=== PATIENT | female | born 1965 | race Hispanic/Latino ===

== ENCOUNTER 2021-03-07 09:35 | Outpatient (CLI) | payer OTHER | END 2021-03-07 09:36 | disposition home or self-care (01) | LOC: CSHCT 09:35 | PROVIDERS: ATTEND Family Medicine | DX: S09.90XA Unspecified injury of head, initial encounter (principal) | CPT/HCPCS: 70450 ==

== ENCOUNTER 2021-12-05 14:26 | Outpatient (CLI) | payer OTHER ==
[2021-12-06 13:49] LABS: SARS-CoV-2 PCR by NAA Not Detected (NotDetected)
== END 2021-12-05 14:27 | disposition home or self-care (01) ==
LOC: CSHLAB 14:26
PROVIDERS: ATTEND Internal Medicine Pulmonary Disease
DX: Z20.822 Contact with and (suspected) exposure to COVID-19 (principal)
CPT/HCPCS: U0003; U0005

== ENCOUNTER 2021-12-09 08:55 | Outpatient (CLI) | payer OTHER | END 2021-12-09 08:56 | disposition home or self-care (01) | LOC: CSHCT 08:55 | PROVIDERS: ATTEND Internal Medicine Pulmonary Disease | DX: J84.9 Interstitial pulmonary disease, unspecified (principal) | CPT/HCPCS: 71250 ==

== ENCOUNTER 2022-08-28 13:36 | Outpatient (CLI) | payer OTHER | END 2022-08-28 13:37 | disposition home or self-care (01) | LOC: CSHCP 13:36 | PROVIDERS: ATTEND Internal Medicine Pulmonary Disease | DX: J84.9 Interstitial pulmonary disease, unspecified (principal) | CPT/HCPCS: 94618 ==

== ENCOUNTER 2023-06-16 10:25 | Outpatient (CLI) | payer BC | END 2023-06-16 10:26 | disposition home or self-care (01) | LOC: CSHMAMMO 10:25 | PROVIDERS: ATTEND Family Medicine | DX: Z13.820 Encounter for screening for osteoporosis (principal); Z78.0 Asymptomatic menopausal state | CPT/HCPCS: 77080 ==

== ENCOUNTER 2023-09-25 14:08 | Observation (INO) | payer BC, SELFPAY ==
[~2023-09-25 14:08] MED LIST: Iopamidol 370 76% 100 ML VIAL ONE
[2023-09-25 14:58] LABS: #Basophils 0.1 10x3/uL (0.0-0.2); #Eosinphils 0.3 10x3/uL (0.0-0.5); #Neutrophils 8.6 10x3/uL (1.5-8.4); %Basophils 0.7 % (0.0-2.0); %Lymphocytes 25.7 % (18.0-47.0); %Monocytes 7.6 % (0.0-10.0); %Neutrophils 63.3 % (40.0-75.0); Hematocrit 42.5 % (34.9-44.5); Hemoglobin 14.1 g/dL (12.0-15.5); Mean Corpuscular HGB CONC 33.2 g/dL (32.0-36.0); Mean Corpuscular Hemoglobin 29.4 pg (27.0-33.0); Mean Corpuscular Volume 88.7 fl (81.6-98.3); Platelet Count 445 10x3/uL (150-450); RBC Distribution Width 12.7 % (11.5-14.5); Red Blood Cell (RBC) Count 4.79 10x6/uL (3.90-5.03); White Blood Cell (WBC) Count 13.6 10x3/uL (3.5-10.5)
[2023-09-25 15:10] LABS: ALT (SGPT) 53 U/L (8-55); AST (SGOT) 50 U/L (5-34); Albumin 4.4 g/dL (3.5-5.0); Alkaline Phosphatase 167 U/L (40-110); Anion Gap 17 mmol/L (10-20); BUN (Urea Nitrogen) 10 mg/dL (9.8-20.1); Bilirubin, Total 0.3 mg/dL (0.2-1.2); Calc. Creatinine Clearance 0 mL/min (70-130); Calcium 9.7 mg/dL (7.8-10.44); Carbon Dioxide 23 mmol/L (22-29); Chloride 101 mmol/L (98-107); Estimated GFR 93; Globulin 3.7 g/dL (2.4-3.5); Glucose 100 mg/dL (70-105); Lipase 66 U/L (8-78); Potassium 4.5 mmol/L (3.5-5.1); Protein, Total 8.1 g/dL (6.0-8.3); Sodium 136 mmol/L (136-145)
[2023-09-25 15:12] LABS: Troponin I Less than 0.010 ng/mL (< 0.028)
[2023-09-25] MEDS ORDERED: Lidocaine 2% Viscous Solution 10 ML, Aluminum & Magnesium Hydroxide 30 ML SSW SCH (16:15)
[2023-09-25] MEDS ORDERED: diphenhydrAMINE 25 MG CAP ONE (16:23)
[2023-09-25] MEDS ORDERED: Metoclopramide 10 MG/10 ML UDCUP ONE (16:23)
[2023-09-25 16:41] LABS: Troponin I Less than 0.010 ng/mL (< 0.028)
[2023-09-25] MEDS ORDERED: Ondansetron PF 4 MG/2 ML Vial IVP PRN (19:22)
[2023-09-25] MEDS ORDERED: Dextrose 5% in Water 1,000 ML IV PRN (19:22)
[2023-09-25] MEDS ORDERED: Glucagon 1 MG/ML KIT IM PRN (19:22)
[2023-09-25] MEDS ORDERED: Calcium Carbonate 500 MG ChewTAB PO PRN (19:22)
[2023-09-25] MEDS ORDERED: HumaLOG 300 UNITS/3 ML VIAL SC PRN (19:22)
[2023-09-25] MEDS ORDERED: Guaifenesin DM 100-10/5 ML UDCUP PO PRN (19:22)
[2023-09-25] MEDS ORDERED: Dextrose 50% Abboject 50 ML SYRINGE SLOW IVP PRN (19:22)
[2023-09-25] MEDS ORDERED: Acetaminophen 325 MG TAB PO PRN (19:22)
[2023-09-25] MEDS ORDERED: HYDROcodone/Acetaminophen 5/325 mg Tablet PO PRN (19:22)
[2023-09-25] MEDS ORDERED: Senokot S 8.6-50 MG TAB PO PRN (19:22)
[2023-09-25] MEDS ORDERED: Ipratropium/Albuterol 3 ML NEB NEB PRN (19:26)
[2023-09-25] MEDS ORDERED: Atorvastatin Calcium 20 MG TAB PO SCH (21:00)
[2023-09-25 21:13] VITALS: BMI 25.4
[2023-09-25] MEDS ORDERED: Famotidine/PF 20 mg/2ml Vial SLOW IVP SCH (21:30)
[2023-09-25 23:45] LABS: Troponin I Less than 0.010 ng/mL (< 0.028)
[2023-09-26] MEDS: Mometasone/Formoterol 200/5 60 PUFF INH SCH ×2 (05:38→09:50)
[2023-09-26 05:57] LABS: Bilirubin Neg (Negative); Blood, Urine Negative (Negative); Clarity Clear (Clear); Glucose, Urine (Dipstick) Normal (Negative); Ketone, Urine Negative (Negative); Leukocyte Negative (Negative); Nitrite Negative (Negative); Protein, Urine (Dipstick) 30 mg/dl (Neg-Trace); Specific Gravity, Urine 1.015 (1.005-1.030); Urobilinogen Normal mg/dL (Less than 2)
[2023-09-26 06:05] LABS: Amphetamine Not Detected (NotDetected); Barbiturates Screen Not Detected (NotDetected); Benzodiazepine Screen Not Detected (NotDetected); Cocaine Metabolite Screen Detected (NotDetected); Methadone Not Detected (NotDetected); Methamphetamine Not Detected (NotDetected); Opiate Screen Not Detected (NotDetected); Oxycodone Screen Not Detected (NotDetected); Phencyclidine (PCP) Not Detected (NotDetected); THC/Cannabinoid Screen Not Detected (NotDetected); Tricyclic Screen Not Detected (NotDetected)
[2023-09-26 06:26] LABS: Bacteria/HPF Rare-Few HPF (None Seen); RBC/HPF None Seen HPF (0-3); WBC/HPF 0-3 HPF (0-3)
[2023-09-26 07:41] LABS: #Basophils 0.1 10x3/uL (0.0-0.2); #Eosinphils 0.4 10x3/uL (0.0-0.5); #Monocytes 0.9 10x3/uL (0.0-1.1); #Neutrophils 3.1 10x3/uL (1.5-8.4); %Basophils 1.3 % (0.0-2.0); %Eosinophils 5.5 % (0.0-6.0); %Lymphocytes 39.9 % (18.0-47.0); %Monocytes 11.4 % (0.0-10.0); %Neutrophils 41.4 % (40.0-75.0); Hematocrit 39.3 % (34.9-44.5); Hemoglobin 13.2 g/dL (12.0-15.5); Mean Corpuscular HGB CONC 33.6 g/dL (32.0-36.0); Mean Corpuscular Hemoglobin 29.8 pg (27.0-33.0); Mean Corpuscular Volume 88.7 fl (81.6-98.3); Platelet Count 378 10x3/uL (150-450); RBC Distribution Width 12.8 % (11.5-14.5); Red Blood Cell (RBC) Count 4.43 10x6/uL (3.90-5.03); White Blood Cell (WBC) Count 7.5 10x3/uL (3.5-10.5)
[2023-09-26 07:59] LABS: Anion Gap 14 mmol/L (10-20); BUN (Urea Nitrogen) 13 mg/dL (9.8-20.1); Calc. Creatinine Clearance 75 mL/min (70-130); Calcium 9.2 mg/dL (7.8-10.44); Carbon Dioxide 25 mmol/L (22-29); Chloride 103 mmol/L (98-107); Estimated GFR 93; Glucose 108 mg/dL (70-105); Potassium 4.7 mmol/L (3.5-5.1); Sodium 137 mmol/L (136-145)
[2023-09-26] MEDS ORDERED: Aspirin 81 mg Enteric Coated Tablet PO SCH (09:00)
[2023-09-26] MEDS ORDERED: Polyethylene Glycol 3350 17 GM Packet PO SCH (09:00)
[2023-09-26] MEDS ORDERED: Lisinopril 2.5 MG TAB PO SCH (09:00)
[2023-09-26 12:24] VITALS: BP 124/60; TEMP 98.1
[2023-09-26] MEDS ORDERED: METFORMIN HCL 500 MG PO SCH (17:00)
== END 2023-09-26 13:13 | disposition home or self-care (01) ==
LOC: CSHERS 14:08 → CSHTELE 20:44 → INTOOBSV 20:44
PROVIDERS: ADMIT Emergency Medicine; ATTEND Internal Medicine
DX: R07.9 Chest pain, unspecified (principal); D72.829 Elevated white blood cell count, unspecified; J84.9 Interstitial pulmonary disease, unspecified; I10 Essential (primary) hypertension; E11.9 Type 2 diabetes mellitus without complications; E78.5 Hyperlipidemia, unspecified; F17.210 Nicotine dependence, cigarettes, uncomplicated; K21.9 Gastro-esophageal reflux disease without esophagitis; F10.90 Alcohol use, unspecified, uncomplicated; Z79.899 Other long term (current) drug therapy; Z79.82 Long term (current) use of aspirin; Z79.84 Long term (current) use of oral hypoglycemic drugs; Z90.49 Acquired absence of other specified parts of digestive tract; Z90.710 Acquired absence of both cervix and uterus
CPT/HCPCS: 36415; 36416; 71045; 71275; 80048; 80053; 80306; 81001; 83690; 84484; 85025; 85379; 93005; 94664; 94760; 96374; G0378; Q9967; S0028